=== PATIENT | male | born 2005 | race Caucasian/White ===

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

== ENCOUNTER 2024-06-27 23:39 | Emergency (ER) | payer MEDICAID, SELFPAY ==
[2024-06-28 00:18] VITALS: BP 115/55; PULSE 75; RESP 18; TEMP 36.9; O2SAT 99; BMI 18.7
[2024-06-28] MEDS: Ondansetron ODT 4 MG TAB.RAPDIS TRANSLINGU (00:25)
[2024-06-28 00:44] LABS: MANUAL DIFF FLAG NO
[2024-06-28 00:45] LABS: Basophils Percent Auto 0.2 % (0-2); Eosinophils Percent Auto 0.1 % (0-4); Hematocrit 41.1 % (42.0-52.0); Hemoglobin 14.8 g/dl (14.0-18.0); Imm Gran Abs Auto 0.05 X10*3/uL (0.00-0.03); Imm Gran Pct Auto 0.3 % (0.0-0.4); Lymphocytes Absolute Auto 0.7 X10*3/uL (1.2-4.9); Mean Corpuscular Hemoglobin 31.6 pg (27.0-33.0); Mean Corpuscular Volume 87.6 fL (80.0-98.0); Mean Platelet Volume 9.8 fL (9.4-12.4); Monocytes Absolute Auto 0.9 X10*3/uL (0.1-1.2); Monocytes Percent Auto 5.5 % (2-11); Neutrophils Percent Auto 89.9 % (45-73); Platelet Count 223 X10*3/uL (160-400); Red Blood Count 4.69 X10*6/uL (4.60-5.80); Red Cell Distribution Width 12.6 % (11.0-16.0); White Blood Count 16.7 X10*3/uL (4.8-10.8)
[2024-06-28 01:08] LABS: Alanine Aminotransferase 17 U/L (0-40); Albumin Level 4.8 g/dL (3.5-5.0); Alkaline Phosphatase 104 U/L (39-117); Anion Gap 15 (12-20); Aspartate Amino Transferase 19 U/L (5-37); Bilirubin Total 1.3 mg/dL (0.0-1.0); Blood Urea Nitrogen 10 mg/dL (9-16); Calcium 9.7 mg/dL (8.4-10.2); Carbon Dioxide 22 mmol/L (22-29); Chloride 106 mmol/L (96-108); Creatinine Clr Calc Pharmacy 118.6; Estimated Glomerular Filt Rate > 60; Glucose Random 104 mg/dL (60-115); Potassium 4.4 mmol/L (3.3-5.1); Sodium 139 mmol/L (135-145); Total Protein 7.9 g/dL (6.5-8.0)
[2024-06-28 01:22] LABS: Influenza A PCR NEGATIVE (Negative); Influenza B PCR NEGATIVE (Negative); Resp Syncy Virus RNA Qual PCR NEGATIVE (Negative); SARS COV2 PCR INHOUSE NEGATIVE (Negative)
[2024-06-28 02:37] VITALS: BP 112/63; PULSE 80; RESP 20; TEMP 36.6; O2SAT 100
[2024-06-28] MEDS: Ibuprofen 600 MG TABLET PO (02:40)
[2024-06-28 04:00] VITALS: BP 105/57; PULSE 64; RESP 18; TEMP 37.2; O2SAT 98
--- NOTE | 2024-06-28 06:14 | ED_ITS ---
HPI - Nausea/Vomiting/Diarrhea General Chief complaint: Nausea/Vomiting/Diarrhea Stated complaint: fever, n/v/d Time Seen by Provider: 06/28/24 05:58 Source: patient Mode of arrival: ambulatory Limitations: no limitations History of Present Illness ED Provider: Dr. Jeremiah Arteaga Related Data Previous Rx's ?Medication ?Instructions ?Recorded ondansetron 4 mg disintegrating 4 mg PO Q8H 3 days #9 tabs 09/09/21 tablet clindamycin HCl 300 mg capsule 300 mg PO TID #20 caps 03/20/22 ibuprofen 400 mg tablet 400 mg PO Q6H PRN pain #20 tabs 03/20/22 ibuprofen 600 mg tablet 600 mg PO Q8H PRN fever or pain 10/31/23 #14 tabs acetaminophen 500 mg tablet 1,000 mg (2 x 500 mg) PO Q6H PRN 06/28/24 (Tylenol Extra Strength) fever or pain #20 tabs ibuprofen 400 mg tablet 400 mg PO TID PRN fever or pain 06/28/24 #30 tabs loperamide 2 mg tablet (Imodium 2 mg PO Q4H PRN loose stool #20 06/28/24 A-D) tabs ondansetron 4 mg disintegrating 4 mg PO Q6-8H PRN nausea and 06/28/24 tablet vomiting #14 tabs Allergies Allergy/AdvReac Type Severity Reaction Status Date / Time Penicillins [PENICILLINS] Allergy Unknown UNKNOWN Verified 06/28/24 00:18 [facility] Social History Social History Advance Directives: No Advance Directives Information Provided: Yes Do you have a plan to hurt others: No Plan Physical Exam 2 Vital Signs: Vital Signs: Last Vital Signs Temp 98.9 F 06/28/24 04:00 Pulse 64 06/28/24 04:00 Resp 18 06/28/24 04:00 BP 105/57 L 06/28/24 04:00 Pulse Ox 98 06/28/24 04:00 O2 Del Method Room Air 06/28/24 04:00 BMI result Body Mass Index 18.7 Medications Administered Discontinued Medications Generic Name Dose Route Start Last Admin Trade Name Freq PRN Reason Stop Dose Admin Ibuprofen 600 mg 06/28/24 02:34 06/28/24 02:40 Ibuprofen 600 Mg Tablet PO 06/28/24 02:35 600 mg ONCE ONE Administration Ondansetron HCl 4 mg 06/28/24 00:23 06/28/24 00:25 Ondansetron Odt 4 Mg Tab.Sonianiranjan NIEVESINGU 06/28/24 00:24 4 mg ONCE ONE Administration Medical Decision Making Medical Decision Making MDM Narrative: 19-year-old male Lab Data 06/28/24 00:38 06/28/24 00:38 Labs: Lab Results 06/28/24 Range/Units 00:38 WBC 16.7 H (4.8-10.8) X10*3/uL RBC 4.69 (4.60-5.80) X10*6/uL Hgb 14.8 (14.0-18.0) g/dl Hct 41.1 L (42.0-52.0) % MCV 87.6 (80.0-98.0) fL MCH 31.6 (27.0-33.0) pg MCHC 36.0 (31.0-36.0) g/dl RDW 12.6 (11.0-16.0) % Plt Count 223 (160-400) X10*3/uL MPV 9.8 (9.4-12.4) fL Immature Gran % (Auto) 0.3 (0.0-0.4) % Neut % (Auto) 89.9 H (45-73) % Lymph % (Auto) 4.0 L (20-40) % Greenlee % (Auto) 5.5 (2-11) % Eos % (Auto) 0.1 (0-4) % Baso % (Auto) 0.2 (0-2) % Lymph # (Auto) 0.7 L (1.2-4.9) X10*3/uL Greenlee # (Auto) 0.9 (0.1-1.2) X10*3/uL Eos # (Auto) 0.0 (0.0-0.4) X10*3/uL Baso # (Auto) 0.0 (0.0-0.2) X10*3/uL Abs Immat Gran (auto) 0.05 H (0.00-0.03) X10*3/uL Absolute Neuts (auto) 15.0 H (2.0-8.3) x10*3/uL Absolute Nucleated RBC 0.000 (0.0-0.012) X10*3/uL Nucleated RBC % (auto) 0.0 (0.0-0.2) /100WBC Sodium 139 (135-145) mmol/L Potassium 4.4 (3.3-5.1) mmol/L Chloride 106 (96-108) mmol/L Carbon Dioxide 22 (22-29) mmol/L Anion Gap 15 (12-20) BUN 10 (9-16) mg/dL Creatinine 0.76 (0.5-1.4) mg/dL Estim Creat Clear Calc 118.6 Estimated GFR > 60 Random Glucose 104 (60-115) mg/dL Calcium 9.7 (8.4-10.2) mg/dL Total Bilirubin 1.3 H (0.0-1.0) mg/dL AST 19 (5-37) U/L ALT 17 (0-40) U/L Alkaline Phosphatase 104 (39-117) U/L Total Protein 7.9 (6.5-8.0) g/dL Albumin 4.8 (3.5-5.0) g/dL Influenza Type A (PCR) NEGATIVE (Negative) Influenza Type B (PCR) NEGATIVE (Negative) RSV RNA Qual (PCR) NEGATIVE (Negative) SARS-CoV-2 RNA (RT-PCR) NEGATIVE (Negative) Discharge Plan Discharge Clinical Impression: Viral syndrome, Nausea & vomiting, Diarrhea Patient Disposition: Home, Self-Care Instructions: Viral Syndrome (ED) Additional Instructions: Your blood work did reveal an elevated white blood cell count otherwise was unremarkable. Your COVID-19, influenza and RSV tests were negative. Your symptoms are consistent with a viral infection (stomach bug). Take ibuprofen 400 mg pills, 1 pills every 6 hours as needed for pain or fever. Take Tylenol (acetaminophen) 500 mg pills, 2 pills every 6 hours as needed for pain or fever. Take Zofran ODT 4 mg pills, 1 pill dissolved in your mouth every 8 hours as needed for nausea and vomiting. For diarrhea I want you to take Imodium 2 mg pills. ?Take 2 pills after the 1st loose, diarrheal stool then 1 pill after each loose, diarrheal stool up to 8 pills per day. ?This usually stops diarrhea within 24 hours. For the next 24 hours, stay on a ANGÉLICA diet (bananas, rice, applesauce, tea and toast). Follow-up with your doctor in 2 days. Please return to the emergency department if your symptoms get worse or if you develop any symptoms that are concerning to you. Please see the return to work note Prescriptions: New loperamide [Imodium A-D] 2 mg tablet 2 mg PO Q4H PRN (Reason: loose stool) Qty: 20 0RF acetaminophen [Tylenol Extra Strength] 500 mg tablet 1,000 mg PO Q6H PRN (Reason: fever or pain) Qty: 20 0RF ibuprofen 400 mg tablet 400 mg PO TID PRN (Reason: fever or pain) Qty: 30 0RF ondansetron 4 mg tablet,disintegrating 4 mg PO Q6-8H PRN (Reason: nausea and vomiting) Qty: 14 0RF No Action ondansetron 4 mg tablet,disintegrating 4 mg PO Q8H 3 Days Qty: 9 0RF ibuprofen 400 mg tablet 400 mg PO Q6H PRN (Reason: pain) Qty: 20 0RF clindamycin HCl 300 mg capsule 300 mg PO TID Qty: 20 0RF ibuprofen 600 mg tablet 600 mg PO Q8H PRN (Reason: fever or pain) Qty: 14 0RF Stand Alone Forms: Work/School Release Print Language: Amharic
[2024-06-28] MEDS: Loperamide HCl 2 MG CAPSULE 4 MG PO (07:02)
== END 2024-06-28 07:00 | disposition home or self-care (01) ==
PROVIDERS: Emergency Provider Emergency Medicine Emergency Medical Services
DX: R11.2 Nausea with vomiting, unspecified (principal); B34.9 Viral infection, unspecified; R19.7 Diarrhea, unspecified; Z03.818 Encounter for observation for suspected exposure to other biological agents ruled out
CPT/HCPCS: 0241U; 36415; 80053; 85025; 99283